=== PATIENT | female | born 1970 | race African-American/Black ===

== ENCOUNTER 2017-03-16 00:23 | Emergency (ER) | payer BC ==
[~2017-03-16] VITALS: Ht 165.1 cm; Wt 81.0 kg
[2017-03-16 00:25] VITALS: BP 144/104; PULSE 90; RESP 16; TEMP 98.4; O2SAT 98
[2017-03-16] MEDS ORDERED: IBUPROFEN 800 MG TAB PO ONE (01:30)
[2017-03-16] MEDS ORDERED: ACETAMINOPHEN/HYDROcodone 325 MG/5 MG TAB PO ONE (01:30)
[2017-03-16] MEDS ORDERED: TETANUS/DIPHTHERIA TOXOID ADULT 0.5 ML VIAL IM ONE (01:30)
[2017-03-16] MEDS ORDERED: DICL75TA PO (01:43)
[2017-03-16] MEDS ORDERED: CYCL1TAB29 PO (01:43)
--- NOTE | 2017-03-16 01:43 | PD ---
HPI Chief Complaint: Headache Time Seen by Provider: 01:35 Travel History International Travel<30 days: No Contact w/Intl Traveler<30days: No Traveled to known affect area: No History of Present Illness HPI 47-year-old female presents emergent department for evaluation of a fall. She states that she was running and had a cramp in her left hamstring causing her to stumble forward striking her head. She also states that she had a subluxation of her right shoulder. Her right shoulder spontaneously reduced. She has had a history of a shoulder dislocation in the past. She denies syncope. No neck or back pain. No numbness, tingling or weakness. No visual changes. No nausea vomiting. She has not had a tetanus shot over 5 years. She denies any vision changes, dental injury or malocclusion. [facility] Past Medical History Narrative Medical rIGHT SHOULDER DISLOCATION Tetanus Vaccination: > 5 Years ?: Not LMP: 03-06-17 Past Surgical History Surgical History: No Previous Surgery Social History Alcohol Use: No Tobacco Use: No Substance Use: No Allergies-Medications (Allergen,Severity, Reaction): Coded Allergies: No Known Allergies (Unverified , 03/16/17) Reported Meds & Prescriptions Reported Meds & Active Scripts Active No Active Prescriptions or Reported Medications Review of Systems Except as stated in HPI: all other systems reviewed are Neg Physical Exam Narrative GENERAL: Well-developed, well-nourished in no apparent distress. Nontoxic appearing. HEAD: There is a 4 x 4 area of soft tissue contusion abrasion with swelling to the mid anterior forehead. The patient has a irregular stellate laceration measuring 2.5 cm. No bony step off. EYES: Pupils equal round and reactive. Extraocular motions intact. No scleral icterus. No injection or drainage. ENT: Nose clear. Throat without erythema, tonsillar hypertrophy or exudate. Uvula midline. Airway patent. NECK: Trachea midline. Supple, nontender, moves head freely. No central bony tenderness or spasm. CARDIOVASCULAR: Regular rate and rhythm without murmurs, gallops, or rubs. RESPIRATORY: Clear to auscultation. Breath sounds equal bilaterally. No wheezes , rales, or rhonchi. GASTROINTESTINAL: Abdomen soft, non-tender, nondistended. No hepato-splenomegaly , or palpable masses. No guarding. EXTREMITIES: No clubbing, cyanosis, or edema. No joint tenderness. Examination of the left upper extremity reveals tenderness to the posterior thigh. No erythema warmth, edema or tenseness. The thigh is supple. No pain in the hip, knee, ankle or foot. She has intact sensation with good distal pulses. The right lower extremity is unremarkable. The right upper extremity has mild soft tissue tenderness in the glenohumeral joint tenderness no obvious deformity. She moves her arm freely. No pain in the elbow, wrist or hand. Median/ulnar/ renal nerves intact. Left upper extremity is unremarkable. BACK: Nontender without deformity. No flank tenderness. NEUROLOGICAL: Awake, alert and oriented x 3 .Cranial nerves grossly intact. Motor and sensory grossly within normal limits. Normal speech. Data Data Last Documented VS Vital Signs Date Time Temp Pulse Resp B/P Pulse Ox O2 Delivery O2 Flow Rate FiO2 03/16/17 00:25 98.4 90 16 144/104 98 Room Air Orders Ice/Cold Pack (03/16/17 01:30) Acetamin-Hydrocod 325-5 Mg ([place] 5-325 (03/16/17 01:30) Ibuprofen (Motrin) (03/16/17 01:30) Tetanus/Diphtheria Tox Adult (Tetanus/Di (03/16/17 01:30) MDM Medical Decision Making Medical Screen Exam Complete: Yes Emergency Medical Condition: Yes Medical Record Reviewed: Yes Differential Diagnosis MDM: High Differential diagnoses: Fracture, sprain, strain, dislocation, contusion, neurovascular injury Narrative Course Patient's given tetanus immunization, Lortab 5 and Motrin 800 mg by mouth. Patient's wound is cleansed and closed with sutures. This is head contusion, facial laceration, left hamstring strain, right shoulder subluxation Procedures Procedure Narrative LACERATION LOCATION: Anterior forehead LENGTH: 2.5 cm NUMBER OF STITCHES/SAMMIE: 4 REPAIR: The area of the laceration was prepped with Betadine and sterilely draped. The laceration was infiltrated with 1% lidocaine with epinephrine. The wound was copiously irrigated and explored without evidence of foreign body , tendon injury or neurovascular injury. The wound was closed using 5-0 proline. This was a simple single layer repair. A sterile dressing was applied. The patient was advised to keep the dressing clean and dry. Patient tolerated the procedure well. Diagnosis Primary Impression: Head contusion Qualified Code: S00.83XA - Contusion of other part of head, initial encounter Additional Impressions: Facial laceration Qualified Code: S01.81XA - Facial laceration, initial encounter Left hamstring muscle strain Qualified Code: S76.312A - Left hamstring muscle strain, initial encounter Shoulder subluxation, right Qualified Code: S43.001A - Shoulder subluxation, right, initial encounter Patient Instructions: General Instructions, Narcotic given in the ED Additional Instructions: Rest. Head precautions. Diclofenac and Flexeril. Ice packs. Daily wound care with soap, water, Neosporin. Sutures out in 5 days. After suture removal apply sunscreen and mederma for 6 months. Avoid all sedating or intoxicating substances. Recheck with your physician within 2-3 days days. Return to the ER for any problems. Med/Other Pt SpecificInfo: Prescription(s) given, Wound Care Scripts No Active Prescriptions or Reported Meds Disposition: 01 DISCHARGE HOME Condition: Stable Agapito Samayoa Mar 16, 2017 01:43
== END 2017-03-16 02:22 | disposition home or self-care (01) ==
LOC: NEPD 00:23
DX: S01.81XA Laceration without foreign body of other part of head, initial encounter (principal); S76.312A Strain of muscle, fascia and tendon of the posterior muscle group at thigh level, left thigh, initial encounter; S43.001A Unspecified subluxation of right shoulder joint, initial encounter; S00.83XA Contusion of other part of head, initial encounter; W19.XXXA Unspecified fall, initial encounter; Y93.02 Activity, running; Z23 Encounter for immunization
CPT/HCPCS: 12011; 90471; 90714